=== PATIENT | male | born 1995 | race Caucasian/White ===

== ENCOUNTER 2019-12-30 11:53 | Outpatient (CLI) | payer OTHER, BC, SELFPAY | END 2019-12-30 11:54 | disposition home or self-care (01) | PROVIDERS: PCP Internal Medicine; Visit Provider Clinical Nurse Specialist | DX: R11.2 Nausea with vomiting, unspecified (principal) | CPT/HCPCS: 87081 ==

== ENCOUNTER 2020-01-02 10:28 | Outpatient (NON) | payer OTHER, BC, SELFPAY ==
[2020-01-02 22:31] LABS: SARS-CoV-2 RNA PCR Negative
== END 2020-01-02 10:29 ==
PROVIDERS: PCP Internal Medicine; Visit Provider Clinical Nurse Specialist
DX: Z20.828 Contact with and (suspected) exposure to other viral communicable diseases (principal); R50.9 Fever, unspecified
CPT/HCPCS: 87635; C9803; U0003

== ENCOUNTER → 2021-08-16 12:20 | Outpatient (CLI) | payer BC, OTHER, SELFPAY ==
--- NOTE | ~2021-08-16 | XR_ITS ---
EXAMINATION: XR chest 2V 08/16/2021 12:37 INDICATION: Status post fall from tree. Chest pain. PROCEDURE: 2 view chest COMPARISON: No prior studies for comparison. FINDINGS: The lungs are clear. The cardiomediastinal silhouette is within normal limits. There are no pleural effusions. There is no pneumothorax suspected. IMPRESSION: 1: NO ACUTE CARDIOPULMONARY DISEASE. Reviewed, dictated and finalized at location A.
== END ==
PROVIDERS: PCP Internal Medicine; Visit Provider Clinical Nurse Specialist
DX: S29.9XXA Unspecified injury of thorax, initial encounter (principal)
CPT/HCPCS: 71046

== ENCOUNTER 2021-11-06 14:00 | Emergency (ER) | payer BC, OTHER, SELFPAY ==
--- NOTE | ~2021-11-06 | XR_ITS ---
EXAMINATION: XR elbow LT min 3V DATE: 11/06/2021 14:20 INDICATION: Left elbow swelling. TECHNIQUE: 4 views of left elbow were obtained. COMPARISON: None. FINDINGS: Bone alignment is normal. No fracture. Joint spaces are normal. There is soft tissue swelli ng around the elbow. IMPRESSION: 1. Soft tissue swelling around the elbow. Reviewed, dictated and finalized at location A.
[2021-11-06 14:09] VITALS: BP 137/68; PULSE 70; RESP 16; TEMP 37.3; O2SAT 100
--- NOTE | 2021-11-06 14:40 | ED.EXTPRO ---
HPI - Extremity Problem General Chief complaint: Extremity Problem,Nontraumatic Stated complaint: Left elbow swollen Time Seen by Provider: 11/06/21 14:40 Source: patient, family, RN notes reviewed and old records reviewed Mode of arrival: ambulatory Limitations: no limitations History of Present Illness HPI Narrative: 26 year old male accompanied by family presents with painful red swollen elbow at olecranon process area since . Patient states he thinks he popped a alejandre that was on the end of his left elbow now swelling with discomfort, and low grade fevers noted last night. Patient also has has healing abrasions from being scratched by tree limbs on his left arm near the elbow.Patient 's left elbow is red swollen and painful on the olecranon process, no drainage or areas of fluctuate tissue. Patient states he has taken some ibuprofen for his discomfort. MD Complaint: joint swelling (left elbow) Onset (ago): day(s) (3) Location: left and upper extremity (elbow) Severity scale (1-10): 5 Quality: aching Related Data Allergies Allergy/AdvReac Type Severity Reaction Status Date / Time No Known Allergies Allergy Verified 11/06/21 14:04 Review of Systems Review of Systems: CONSTITUTIONAL: Positive low-grade fever, chills, or sweats. EYES: Denies visual changes, redness, or discharge. ENT: Denies rhinorrhea, congestion, sore throat, or otalgia. CARDIOVASCULAR: Denies chest pain, palpitations, or edema. RESPIRATORY: Denies cough or dyspnea. GASTROINTESTINAL: Denies abdominal pain, nausea, vomiting, or diarrhea. GENITOURINARY: Denies dysuria or hematuria. SKIN: Denies rash or itching. Redness swelling olecranon region of left elbow MUSCULOSKELETAL: Denies back pain, positive left elbow pain, or myalgia. NEUROLOGIC: Denies headache, numbness, or weakness. PSYCHIATRIC: Denies anxiety or depression. All systems reviewed & are unremarkable except as noted in HPI and below PMFSH Past Medical History Medical History (Updated 11/08/21 @ 13:45 by Linda Mcmahon NP) Cellulitis of right elbow Fracture of arm Fractured nose Surgical History Surgical History (Updated 11/09/21 @ 08:22 by Linda Mcmahon NP) No history of previous surgery Family History Family History Mother Patient's mother is in good health Father Patient's father is in good health Social History Social History (Updated 11/08/21 @ 13:45 by Linda Mcmahon NP) Smoking status: Never smoker Alcohol intake: current Alcohol use details: Pt drinks rarely. Substance use: current Substance use type: marijuana Living arrangements: with family Gender identity (if verbalized by the patient): Male Comments At time of signature, agree with nursing past medical, surgical, social and family history. There is no relevant family history pertinent to the presenting complaint Exam Narrative: GENERAL: Well-appearing, well-nourished, and in no acute distress. HEAD: Normocephalic, atraumatic. EYES: PERRLA and EOMI. ENT: Nares clear, no rhinorrhea or epistaxis. Mucous membranes moist. TM's normal, throat pink with no lesions or exudates, tonsils not swollen NECK: Supple. No lymphadenopathy CHEST: Clear to auscultation. No respiratory distress. SaO2 100% on room air HEART: Regular rate and rhythm. No murmur heard. Normal peripheral pulses. ABDOMEN: Soft, nontender, nondistended, normal active bowel sounds. EXTREMITIES: Normal range of motion. Edema noted at olecranon process region of left elbow with tenderness and redness to area with discomfort on palpation and warmth, no open wound noted. SKIN: Warm, dry, no rash. NEURO: No focal deficits. Alert and oriented x3. Course Course Level of Care: Express Care Visit Vital Signs Vital signs: Vital Signs Temperature 37.3 C 11/06/21 14:09 Pulse Rate 70 11/06/21 14:09 Respiratory Rate 16 11/06/21 14:09 Blood Pressure 137/68
[2021-11-06] MEDS: TETANUS,DIPHTHERIA,AC PERTUSSIS ADULT (0.5 ML) BOOSTRIX IM (15:06)
== END 2021-11-06 15:00 | disposition home or self-care (01) ==
PROVIDERS: Emergency Provider Registered Nurse; PCP Internal Medicine
DX: L03.114 Cellulitis of left upper limb (principal); Z23 Encounter for immunization
CPT/HCPCS: 73080; 90471; 90715; 99213; G0463

== ENCOUNTER 2022-06-20 13:29 | Outpatient (CLI) | payer OTHER, SELFPAY ==
--- NOTE | ~2022-06-20 | MR_ITS ---
EXAMINATION: MR brain/brain stem wo/w con DATE: 06/20/2022 14:15 INDICATION: Worsening headache. TECHNIQUE: Magnetic resonance imaging (MRI) of the brain and brainstem was performed without and with 15 mL MultiHance intravenous contrast. COMPARISON: None. FINDINGS: There is no intracranial hemorrhage, acute infarction, or abnormal intracranial mass lesion . The ventricles are normal in size. The mastoid air cells are normal. There is mild mucosal thickeni ng in the paranasal sinuses. The orbits are normal. IMPRESSION: 1. Normal brain. Reviewed, dictated and finalized at location A. IMPRESSION: 1. Normal brain.
== END 2022-06-20 13:30 | disposition home or self-care (01) ==
PROVIDERS: PCP Internal Medicine; Visit Provider Clinical Nurse Specialist
DX: A87.9 Viral meningitis, unspecified (principal); R51.9 Headache, unspecified
CPT/HCPCS: 70553; A9577

== ENCOUNTER 2023-10-15 10:02 | Emergency (ER) | payer OTHER, SELFPAY ==
--- NOTE | 2023-10-15 10:11 | ED.URI ---
HPI - URI/Sore Throat General Chief Complaint: Upper Respiratory Infection Stated Complaint: Sore Throat Time Seen by Provider: 10/15/23 10:21 Source: patient and RN notes reviewed Mode of arrival: ambulatory Limitations: no limitations History of Present Illness HPI Narrative: 28-year-old male presents with concern for sore throat, painful swallowing, fever for 4 days. Reports history of strep throat as a child. He denies headache, stomachache, vomiting. MD elicited complaint: sore throat Related Data Home Medications Medication Instructions Recorded Confirmed acyclovir 800 mg tablet 800 mg PO DAILY 06/14/22 06/14/22 Allergies Allergy/AdvReac Type Severity Reaction Status Date / Time No Known Allergies Allergy Verified 06/06/22 11:07 Review of Systems Review of Systems: CONSTITUTIONAL: Reports malaise, fever. EYES: Denies visual changes, redness, or discharge. ENT: Denies rhinorrhea, congestion, sinus pain, otalgia. Reports sore throat. CARDIOVASCULAR: Denies chest pain, palpitations, or edema. RESPIRATORY: Denies cough. Denies dyspnea. GASTROINTESTINAL: Denies abdominal pain, nausea, vomiting, diarrhea SKIN: Denies rash or itching. MUSCULOSKELETAL: Denies myalgia. NEUROLOGIC: Denies headache. All systems reviewed & are unremarkable except as noted in HPI and below PMFSH Past Medical History Medical History Cellulitis of right elbow Fracture of arm Fractured nose Surgical History Surgical History No history of previous surgery Family History Family History Mother Patient's mother is in good health Father Patient's father is in good health Social History Social History (Updated 06/14/22 @ 08:23 by Guanaco Perkins MA) Smoking status: Never smoker Alcohol intake: current Alcohol use details: Pt drinks rarely. Substance use: current Substance use type: marijuana Lack of Transportation: No Lack of Food: Never True Current Housing: I Have Housing Concerned About Future Housing: No Difficulty Paying Gas/Electric Bills: No Difficulty Paying for Meds: No Currently Unemployed: No Education: High School Diploma/GED Difficulty w/ Childcare or Family Care: No Living arrangements: with family Gender identity (if verbalized by the patient): Male Comments At time of signature, agree with nursing past medical, surgical, social and family history. There is no relevant family history pertinent to the presenting complaint Exam Narrative: GENERAL: Well-appearing, well-nourished, and in no acute distress. HEAD: Normocephalic EYES: PERRLA, conjunctivae clear ENT: Nares clear. Mucous membranes moist. TM pearly caballero with sharp light reflex bilaterally; no tragal tenderness. Oropharynx erythematous without lesions. Tonsils enlarged and without exudate, no drooling, no hoarseness, no trismus, uvula midline. NECK: Supple. No lymphadenopathy CHEST: Clear to auscultation, breath sounds equal. No wheezing, rhonchi, rales, or stridor. No respiratory distress, speaks in full sentences. HEART: Regular rate and rhythm. No murmur heard. SKIN: Warm, dry, no rash. NEURO: Alert and oriented x3. PSYCH: Normal mood and affect Course Course Emergency Course: Patient is aware of diagnosis, understands and agrees to treatment plan. Anticipatory guidance given. Patient agrees to follow-up as directed and is aware of reasons to seek care at the emergency department. Portions of this record may have been created with voice recognition software Level of Care: Express Care Visit Vital Signs Vital signs: Reviewed. MDM - URI/Sore Throat MDM Narrative Medical decision making narrative: Differential diagnosis considered: Mukherjee virus, strep pharyngitis, allergic rhinitis, upper respiratory tract infect
[2023-10-15 10:13] VITALS: BP 142/96; PULSE 72; RESP 16; TEMP 36.4; O2SAT 100
[2023-10-15 10:25] LABS: EDINFLUASCREEN Negative; EDINFLUBSCREEN Negative
== END 2023-10-15 10:23 | disposition home or self-care (01) ==
PROVIDERS: Emergency Provider Nurse Practitioner; PCP Internal Medicine
DX: J02.0 Streptococcal pharyngitis (principal); Z20.822 Contact with and (suspected) exposure to COVID-19; F12.90 Cannabis use, unspecified, uncomplicated
CPT/HCPCS: 87426; 87804; 87880; 99213; G0463